=== PATIENT | male | born 1975 | race Caucasian/White ===

== ENCOUNTER 2017-02-22 20:59 | Emergency (ER) | payer MEDICAID, OTHER ==
[2017-02-22 21:10] VITALS: BMI 27.8
[2017-02-22 21:15] VITALS: BP 121/62; PULSE 104; RESP 16; TEMP 99.1; O2SAT 97
[2017-02-22] MEDS ORDERED: Lidocaine 1% Inj (20ml) ONE (21:28)
--- NOTE | 2017-02-22 21:45 | ED PDOC ---
Arrival/HPI - General Chief Complaint: Abnormal Skin Integrity Time Seen by Provider: 02/22/17 21:13 Historian: Patient - History of Present Illness Narrative History of Present Illness (Text): 02/22/17 21:42 41yo male with no PMhx present with laceration to his right 4th finger. He states that he accidentally cut his finger with a knife while cutting meat minutes prior to arrival. States he is up to date with his TD vaccination. He otherwise notes FROM of finger. Past Medical History - Provider Review Nursing Documentation Reviewed: Yes - Psychiatric Hx Substance Use: Yes - Surgical History Hx Cholecystectomy: Yes - Anesthesia Hx Anesthesia: Yes Hx Anesthesia Reactions: No Family/Social History - Physician Review Nursing Documentation Reviewed: Yes Family/Social History: Unknown Family HX Smoking Status: Current Some Days Smoker Hx Alcohol Use: Yes Frequency of alcohol use: Socially Hx Substance Use: Yes Allergies/Home Meds Allergies/Adverse Reactions: Allergies No Known Allergies Allergy (Verified 11/19/15 21:19) Review of Systems - Physician Review All systems were reviewed & negative as marked: Yes - Review of Systems Constitutional: Normal Eyes: Normal ENT: Normal Respiratory: Normal Cardiovascular: Normal Gastrointestinal: Normal Genitourinary Male: Normal Musculoskeletal: Normal Skin: Laceration (Right 4th finger) Neurological: Normal Endocrine: Normal Hemo/Lymphatic: Normal Psychiatric: Normal Physical Exam Vital Signs Reviewed: Yes Vital Signs Temp Pulse Resp BP Pulse Ox 02/22/17 21:14 99.1 F 104 H 16 121/62 97 Temperature: Afebrile Blood Pressure: Normal Pulse: Regular Respiratory Rate: Normal Appearance: Positive for: Well-Appearing, Non-Toxic, Comfortable Pain Distress: None Mental Status: Positive for: Alert and Oriented X 3 - Systems Exam Head: Present: Atraumatic, Normocephalic Pupils: Present: PERRL Extroacular Muscles: Present: EOMI Conjunctiva: Present: Normal Mouth: Present: Moist Mucous Membranes Neck: Present: Normal Range of Motion Respiratory/Chest: Present: Clear to Auscultation, Good Air Exchange. No: Respiratory Distress, Accessory Muscle Use Cardiovascular: Present: Regular Rate and Rhythm, Normal S1, S2. No: Murmurs Abdomen: Present: Normal Bowel Sounds. No: Tenderness, Distention, Peritoneal Signs Back: Present: Normal Inspection Upper Extremity: Present: Normal Inspection. No: Cyanosis, Edema Lower Extremity: Present: Normal Inspection. No: Edema Neurological: Present: GCS=15, CN II-XII Intact, Speech Normal Skin: Present: Warm, Dry, Normal Color, Laceration (1.6cm wedgeshaped laceration to lateral right 4th finger). No: Rashes Psychiatric: Present: Alert, Oriented x 3, Normal Insight, Normal Concentration Medical Decision Making - Medication Orders Current Medication Orders: Discontinued Medications Cephalexin Monohydrate (Keflex) 500 mg PO STAT STA PRN Reason: Protocol Stop: 02/22/17 21:45 Last Admin: 02/22/17 22:11 Dose: 500 mg Procedure: Wound Repair - Consent Obtained Consent obtained: Verbal - Performed by Performed by: Mid-level Provider - Indications Indication(s):: Laceration - Location Finger:: Right, Ring Shape:: Curvilinear Dimensions Length cm: 1.6 - Anesthetic Technique Local/Regional Anesthetic:: Lidocaine 1% - Debris Debris:: None - Complexity Complexity:: Intermediate (2 layer) - Muscle repiar layer closed with Muscle repair layer closed with:: # (5), Size (4), Type (vicryl), Technique ( interrupted), Wound well approximated, Abx ointment applied, Dressing applied, Tetanus up to date Disposition/Present on Arrival - Present on Arrival Any Indicators Present on Arrival: No History of DVT/PE: No History of Uncontrolled Diabetes: No Urinary Catheter: No History of Decub. Ulcer: No History Surgical Site Infection Following: None - Disposition Have Diagnosis and Disposition been Completed?: Yes Diagnosis: Finger laceration Disposition: HOME/ ROUTINE Disposition Time: 22:15 Patient Plan: Discharge Patient Problems: Current Active Problems Problem Status Onset Finger laceration Acute Condition: STABLE Discharge Instructions (ExitCare): Finger Laceration (ED) Additional Instructions: Keep wound clean and dry follow up with your Doctor in 10days for suture removal Return to ED for redness, purulent discharge from wound Prescriptions: Cephalexin [cephalexin] 500 mg PO TID #21 cap Referrals: Giuseppe Mcadams MD [Primary Care Provider] - Follow up with primary Forms: [employer] (Bengali)
== END 2017-02-22 22:26 | disposition home or self-care (01) ==
LOC: ED 20:59
DX: S61.214A Laceration without foreign body of right ring finger without damage to nail, initial encounter (principal); W26.0XXA Contact with knife, initial encounter